=== PATIENT | female | born 1975 | race American Indian/Alaskan Native ===

== ENCOUNTER 2019-08-21 09:33 | Observation (INO) | payer BC, MEDICAID, MEDICARE ==
[2019-08-21] MEDS ORDERED: fentaNYL 100 MCG/2 ML INJ IV ONE (09:59)
[2019-08-21] MEDS ORDERED: propofoL 200 MG/20 ML VIAL IV ONE (10:00)
[2019-08-21] MEDS ORDERED: fentaNYL 100 MCG/2 ML INJ ONE (10:02)
--- NOTE | 2019-08-21 10:04 | Emergency Department Report ---
ED General Adult HPI - General Stated complaint: LT SHOULDER PAIN Time Seen by Provider: 08/21/19 09:58 - History of Present Illness Initial comments: 43-year-old female with no prior shoulder injury. Patient states that she fell on her steps. She states that the steps are to steep and she has fallen before. She does not report any prior shoulder injury. She states that she has recently had implants after prior surgery for breast cancer. She states that she was not found to have any residual carcinoma or spread. She states her last meal was last night. She has had no prior problems with anesthesia. -: Sudden Location: left, upper extremity (Shoulder only) Radiation: non-radiation Quality: aching Consistency: constant Improves with: none Worsens with: movement Associated Symptoms: denies other symptoms Treatments Prior to Arrival: none - Related Data Home Medications Medication Instructions Recorded Confirmed Last Taken Phentermine HCl 30 mg PO BID 01/31/14 02/14/14 02/07/14 Valacyclovir HCl [Valtrex] 500 mg PO DAILY 01/31/14 02/14/14 Unknown Allergies Allergy/AdvReac Type Severity Reaction Status Date / Time No Known Allergies Allergy Verified 01/13/14 13:17 ED Review of Systems ROS: Stated complaint: LT SHOULDER PAIN Other details as noted in HPI Constitutional: denies: chills, fever Eyes: denies: eye pain, eye discharge ENT: denies: ear pain, throat pain Respiratory: denies: shortness of breath, wheezing Cardiovascular: denies: chest pain, dyspnea on exertion Endocrine: no symptoms reported Gastrointestinal: denies: abdominal pain, vomiting Genitourinary: denies: urgency, dysuria Musculoskeletal: as per HPI, arthralgia (Currently). denies: back pain Skin: denies: rash, lesions Neurological: denies: weakness, numbness, paresthesias Psychiatric: denies: anxiety, depression Hematological/Lymphatic: denies: easy bleeding, easy bruising ED Past Medical Hx - Surgical History Hx Breast Surgery: Yes (BREAST AUGMENTATION) - Social History Smoking Status: Current Every Day Smoker - Medications Home Medications: Home Medications Medication Instructions Recorded Confirmed Last Taken Type Phentermine HCl 30 mg PO BID 01/31/14 02/14/14 02/07/14 History Valacyclovir HCl [Valtrex] 500 mg PO DAILY 01/31/14 02/14/14 Unknown History ED Physical Exam - General Limitations: Physical Limitation General appearance: alert, in distress - Head Head exam: Present: atraumatic, normocephalic - Eye Eye exam: Present: normal appearance. Absent: scleral icterus - ENT ENT exam: Present: mucous membranes moist - Neck Neck exam: Present: normal inspection. Absent: tenderness - Respiratory Respiratory exam: Present: normal lung sounds bilaterally. Absent: respiratory distress - Cardiovascular Cardiovascular Exam: Present: regular rate, normal rhythm - GI/Abdominal GI/Abdominal exam: Present: soft, normal bowel sounds. Absent: distended, tenderness - Extremities Exam Extremities exam: Present: other (Deformity of the left shoulder. Limited exam secondary to pain. Positive apprehension. Grossly neurovascular intact exam.) - Back Exam Back exam: Present: muscle spasm. Absent: paraspinal tenderness, vertebral tenderness - Neurological Exam Neurological exam: Present: alert, oriented X3, CN II-XII intact (As tested). Absent: motor sensory deficit (Limited exam. Appears intact) - Psychiatric Psychiatric exam: Present: agitated, anxious - Skin Skin exam: Present: warm, dry, intact ED Course Vital Signs 08/21/19 08/21/19 08/21/19 09:40 09:46 10:01 Pulse Rate 122 H 119 H 120 H Respiratory 20 13 22 Rate Blood Pressure Blood Pressure 149/69 [Right] O2 Sat by Pulse 98 100 93 Oximetry 08/21/19 08/21/19 08/21/19 10:15 10:31 10:45 Pulse Rate 131 H 132 H 115 H Respiratory 27 H 29 H 20 Rate Blood Pressure 149/69 149/69 149/69 Blood Pressure [Right] O2 Sat by Pulse 86 99 Oximetry 08/21/19 11:13 Pulse Rate Respiratory 14 Rate Blood Pressure Blood Pressure [Right] O2 Sat by Pulse Oximetry - Reevaluation(s) Reevaluation #1: Patient given fentanyl. Her portable x-rays revealed a spiral shaft fracture displaced of the proximal humerus. This cannot be reduced in the emergency department. Ortho paged. 08/21/19 10:24 Reevaluation #2: Spoke with Dr. Roblero. He has accepted the patient. He states he will operate in the a.m. Admit to hospitalist service. 08/21/19 11:25 ED Medical Decision Making - Lab Data Result diagrams: 08/21/19 10:46 08/21/19 10:46 Laboratory Results - last 24 hr 08/21/19 08/21/19 08/21/19 10:46 10:46 10:46 WBC 16.7 H RBC 4.52 Hgb 12.0 Hct 36.6 MCV 81 MCH 27 L MCHC 33 RDW 15.2 Plt Count 379 Lymph % (Auto) 4.6 L [place] % (Auto) 7.6 H Eos % (Auto) 0.1 Baso % (Auto) 0.4 Lymph # 0.8 L [place] # 1.3 H Eos # 0.0 Baso # 0.1 Seg Neutrophils % 87.3 H Seg Neutrophils # 14.6 H PT 14.9 INR 1.15 H APTT 23.7 L Sodium 137 Potassium 3.5 L Chloride 101.6 Carbon Dioxide 18 L Anion Gap 21 BUN 8 Creatinine 0.6 L Estimated GFR > 60 BUN/Creatinine Ratio 13 Glucose 97 Calcium 9.6 Total Bilirubin 0.70 AST 35 ALT 16 Alkaline Phosphatase 118 Total Protein 7.3 Albumin 4.2 Albumin/Globulin Ratio 1.4 Blood Type 08/21/19 10:48 WBC RBC Hgb Hct MCV MCH MCHC RDW Plt Count Lymph % (Auto) [place] % (Auto) Eos % (Auto) Baso % (Auto) Lymph # [place] # Eos # Baso # Seg Neutrophils % Seg Neutrophils # PT INR APTT Sodium Potassium Chloride Carbon Dioxide Anion Gap BUN Creatinine Estimated GFR BUN/Creatinine Ratio Glucose Calcium Total Bilirubin AST ALT Alkaline Phosphatase Total Protein Albumin Albumin/Globulin Ratio Blood Type A POSITIVE - EKG Data -: EKG Interpreted by Ut EKG shows normal: sinus rhythm, axis, intervals, QRS complexes, ST-T waves Rate: tachycardia - EKG Data Interpretation: no acute changes - Radiology Data Radiology results: image reviewed (Displaced spiral fracture of the humerus) Critical care attestation.: If time is entered above; I have spent that time in minutes in the direct care of this critically ill patient, excluding procedure time. ED Disposition Clinical Impression: History of breast cancer Proximal humerus fracture Qualifiers: Encounter type: initial encounter Fracture type: closed Fracture morphology: other fracture Fracture alignment: displaced Laterality: left Qualified Code(s): S42.292A - Other displaced fracture of upper end of left humerus, initial encounter for closed fracture Disposition: DC-09 OP ADMIT IP TO THIS HOSP Is pt being admited?: Yes Does the pt Need Aspirin: No Condition: Stable Time of Disposition: 11:28
--- NOTE | 2019-08-21 10:38 | XRay Report ---
HISTORY:Pain, dislocated COMPARISON: None. TECHNIQUE: AP lateral and obliques views were obtained FINDINGS: Bones: Oblique fracture of the proximal humerus is present. Joint spaces: Maintained. Soft tissues: No significant abnormality. Additional findings: None. IMPRESSION: 1. Fractured humerus as noted Signer Name: Lennox Mckeon MD Signed: 08/21/2019 10:34 AM Workstation Name: [id number]
[2019-08-21 11:00] LABS: Basophils # (Auto) 0.1 K/mm3 (0.0-0.1); Basophils % (Auto) 0.4 % (0.0-1.8); Eosinophils % (Auto) 0.1 % (0.0-4.3); Hematocrit 36.6 % (30.3-42.9); Lymphocytes # (Auto) 0.8 K/mm3 (1.2-5.4); Lymphocytes % (Auto) 4.6 % (13.4-35.0); Mean Corpuscular HGB Conc 33 % (30-34); Mean Corpuscular Volume 81 fl (79-97); Monocytes # (Auto) 1.3 K/mm3 (0.0-0.8); Monocytes % (Auto) 7.6 % (0.0-7.3); Platelet Count 379 K/mm3 (140-440); Red Blood Count 4.52 M/mm3 (3.65-5.03); Red Cell Distribution Width 15.2 % (13.2-15.2)
[2019-08-21] MEDS ORDERED: ONDANSETRON 4 MG/2 ML INJ IV ONE ×2 (11:05→11:06)
[2019-08-21] MEDS ORDERED: HYDROmorphone 1 MG/1 ML INJ IV ONE ×3 (11:05→13:10)
[2019-08-21] MEDS ORDERED: diphenhydrAMINE 50 MG/ML VIAL IV ONE ×2 (11:05→11:07)
[2019-08-21] MEDS ORDERED: diphenhydrAMINE 50 MG/ML VIAL ONE (11:08)
[2019-08-21] MEDS ORDERED: HYDROmorphone 1 MG/1 ML INJ ONE ×2 (11:08→13:09)
[2019-08-21] MEDS ORDERED: ONDANSETRON 4 MG/2 ML INJ ONE (11:08)
[2019-08-21 11:11] LABS: INR 1.15 (0.87-1.13)
[2019-08-21 11:12] LABS: Partial Thromboplastin Time 23.7 Sec. (24.2-36.6)
[2019-08-21 11:25] LABS: Alanine Aminotransferase 16 units/L (7-56); Albumin 4.2 g/dL (3.9-5); BUN/Creatinine Ratio 13; Blood Urea Nitrogen 8 mg/dL (7-17); Calcium 9.6 mg/dL (8.4-10.2); Hemolysis Index 35
[2019-08-21 11:36] LABS: Bilirubin,Direct < 0.2 mg/dL (0-0.2)
--- NOTE | 2019-08-21 12:34 | History and Physical Report ---
History of Present Illness Chief complaint: I tripped and then fell and hurt my arm History of present illness: 43-year-old female with nicotine dependence, breast cancer, depression, medication noncompliance presents to ED for evaluation. Patient states that she tripped and subsequently fell on her steps and landed on her left arm this morning. Patient states that she suddenly felt severe pain in her left arm aft er the fall. EMS was notified and upon arrival the patient was found to be in distress with bruising and pain to the left upper extremity. Patient subsequently transported to [facility] for further care and evaluation. Patient seen and evaluated in the emergency department. Lab and imaging studies reviewed and the results discussed with the patient. Patient found to have left humerus fracture. Orthopedic surgery service consulted in ED. Patient admitted to surgical floor for medical stabilization and preoperative optimization. No prior admission for review. All medication listed at time of admission has been reconciled. Past History Past Medical History: cancer, other (See HPI) Past Surgical History: Other (Breast surgery) Social history: single, smoking Family history: hypertension Medications and Allergies Allergies Allergy/AdvReac Type Severity Reaction Status Date / Time No Known Allergies Allergy Verified 01/13/14 13:17 Home Medications Medication Instructions Recorded Confirmed Last Taken Type Phentermine HCl 30 mg PO BID 01/31/14 02/14/14 02/07/14 History Valacyclovir HCl [Valtrex] 500 mg PO DAILY 01/31/14 02/14/14 Unknown History Review of Systems Constitutional: no weight loss, no weight gain, no fever, no chills Ears, nose, mouth and throat: no ear pain, no ear discharge, no tinnitis, no nose pain, no nasal congestion Breasts: no change in shape, no mass Cardiovascular: no chest pain, no orthopnea, no palpitations, no rapid/irregular heart beat, no edema, no syncope, no lightheadedness, no shortness of breath Respiratory: no cough, no cough with sputum, no excessive sputum, no shortness of breath, no dyspnea on exertion Gastrointestinal: no abdominal pain, no nausea, no vomiting, no diarrhea Genitourinary Female: no pelvic pain, no flank pain, no menorrhagia, no dysuria Rectal: no pain, no incontinence, no bleeding Musculoskeletal: other (Left arm pain), no neck stiffness, no neck pain, no arm numbness/tingling, no low back pain, no shooting leg pain, no leg numbness/tingling Integumentary: no rash, no pruritis, no redness, no sores, no wounds Neurological: no transient paralysis, no paralysis, no weakness, no parathesias, no numbness, no tingling, no seizures, no syncope, no tremors Psychiatric: anxiety, depression, no memory loss, no change in sleep habits, no insomnia, no change in appetite Endocrine: no cold intolerance, no heat intolerance, no polyphagia, no excessive thirst, no polydipsia, no polyuria, no excessive sweating Hematologic/Lymphatic: no easy bruising, no easy bleeding, no lymphadenopathy Allergic/Immunologic: no urticaria, no allergic rhinitis, no wheezing, no persistent infections Exam - Constitutional Vitals: Temp Pulse Resp BP Pulse Ox 115 H 14 149/69 99 08/21/19 10:45 08/21/19 11:13 08/21/19 10:45 08/21/19 10:45 General appearance: Present: mild distress - EENT Eyes: Present: PERRL ENT: hearing intact, clear oral mucosa - Neck Neck: Present: supple, normal ROM - Respiratory Respiratory effort: normal Respiratory: bilateral: CTA - Cardiovascular Heart Sounds: Present: S1 & S2. Absent: rub, click - Extremities Extremities: pulses symmetrical, No edema Peripheral Pulses: within normal limits - Abdominal General gastrointestinal: Present: soft, non-tender, non-distended, normal bowel sounds Female genitourinary: Present: normal - Integumentary Integumentary: Present: clear, warm, dry - Musculoskeletal Musculoskeletal: gait normal, strength equal bilaterally - Psychiatric Psychiatric: appropriate mood/affect, intact judgment & insight - Neurologic Neurologic: CNII-XII intact, moves all extremities Results - Labs CBC & Chem 7: 08/21/19 10:46 08/21/19 10:46 Labs: Abnormal lab results 08/21/19 08/21/19 08/21/19 Range/Units 10:46 10:46 10:46 WBC 16.7 H (4.5-11.0) K/mm3 MCH 27 L (28-32) pg Lymph % (Auto) 4.6 L (13.4-35.0) % [place] % (Auto) 7.6 H (0.0-7.3) % Lymph # 0.8 L (1.2-5.4) K/mm3 [place] # 1.3 H (0.0-0.8) K/mm3 Seg Neutrophils % 87.3 H (40.0-70.0) % Seg Neutrophils # 14.6 H (1.8-7.7) K/mm3 INR 1.15 H (0.87-1.13) APTT 23.7 L (24.2-36.6) Sec. Potassium 3.5 L (3.6-5.0) mmol/L Carbon Dioxide 18 L (22-30) mmol/L Creatinine 0.6 L (0.7-1.2) mg/dL Assessment and Plan - Patient Problems (1) Left humeral fracture Current Visit: Yes Status: Acute Plan to address problem: X-ray left arm, orthopedic surgery service consulted, pending surgical intervention in a.m., Pain control (2) Systemic inflammatory response syndrome Current Visit: Yes Status: Acute Plan to address problem: CBC, CMP, urinalysis, chest x-ray, empiric IV antibiotic therapy x1 dose, repeat CBC in a.m. (3) History of breast cancer Current Visit: Yes Status: Acute Plan to address problem: Supportive care, outpatient oncology follow-up. (4) Nicotine dependence Current Visit: Yes Status: Acute Qualifiers: Nicotine product type: cigarettes Substance use status: in withdrawal Qualified Code(s): F17.213 - Nicotine dependence, cigarettes, with withdrawal Plan to address problem: Supportive care, behavior change counseling, +15 minutes (5) Depression Current Visit: Yes Status: Acute Plan to address problem: Mental health consulted, patient acknowledges noncompliance with outpatient antidepressant medication. (6) Agitation Current Visit: Yes Status: Acute Plan to address problem: Ativan every 6 hours as needed, supportive care. (7) Noncompliance Current Visit: Yes Status: Acute Plan to address problem: Patient noncompliant with psychiatric medication. Patient states that she only takes the medication when she feels as though she needs it. Patient counseled regarding noncompliance with medication. Patient informed that noncompliance with outpatient medication may result in worsening symptoms, worsening dysfunct ion, and even . Patient knowledges understanding instructions. Patient acknowledges understanding risks of noncompliance. (8) DVT prophylaxis Current Visit: Yes Status: Acute Plan to address problem: SCD to bilateral lower extremities while in bed, patient is ambulatory.
[2019-08-21] MEDS ORDERED: ACETAMINOPHEN 325 MG TAB PO PRN (12:35)
[2019-08-21] MEDS ORDERED: ONDANSETRON 4 MG/2 ML INJ IV PRN (12:35)
[2019-08-21] MEDS ORDERED: MORPHINE 2 MG/1 ML INJ IV PRN (12:35)
[2019-08-21] MEDS ORDERED: SODIUM BICARB 8.4% 50 MEQ/50 ML SYRINGE IV ONE ×2 (12:38→13:48)
[2019-08-21] MEDS ORDERED: LORazepam 2 MG/ML VIAL IV ONE (13:10)
[2019-08-21] MEDS ORDERED: LORazepam 2 MG/ML VIAL ONE (13:14)
[2019-08-21] MEDS ORDERED: oxyCODONE /ACETAMINOPHEN 5-325MG TAB ONE (13:14)
[2019-08-21] MEDS: oxyCODONE /ACETAMINOPHEN 5-325MG TAB PO PRN ×2 (13:17→20:24)
[2019-08-21] MEDS ORDERED: LORazepam 2 MG/ML VIAL IV PRN (13:35)
[2019-08-21] MEDS ORDERED: MORPHINE 2 MG/1 ML INJ ONE (14:28)
--- NOTE | 2019-08-21 14:52 | XRay Report ---
CHEST 1 VIEW 1425 INDICATION / CLINICAL INFORMATION: cough. COMPARISON: 1003 FINDINGS: SUPPORT DEVICES: None HEART / MEDIASTINUM: No significant abnormality. LUNGS / PLEURA: Mild bibasilar atelectatic changes are noted. No definite areas of consolidation are seen. No pneumothorax. ADDITIONAL FINDINGS: No significant additional findings. IMPRESSION: Mild atelectasis Signer Name: Stefan Sarmiento MD Signed: 08/21/2019 2:47 PM Workstation Name: [id number]
--- NOTE | 2019-08-21 21:23 | Anesthesia Consultation ---
Anesthesia Consult and Med Hx Date of service: 08/21/19 - Airway Anesthetic Teeth Evaluation: Poor, Partials ROM Head & Neck: Adequate Mental/Hyoid Distance: Adequate Mallampati Class: Class II Intubation Access Assessment: Probably Good - Pulmonary Exam CTA: Yes - Cardiac Exam Cardiac Exam: RRR - Pre-Operative Health Status ASA Pre-Surgery Classification: ASA2 Proposed Anesthetic Plan: General - Pulmonary Hx Smoking: Yes Hx Respiratory Symptoms: No (hx PNA in 04/2019; resolved) - Cardiovascular System Hx Hypertension: No Hx Heart Attack/AMI: No Hx Percutaneous Transluminal Coronary Angioplasty (PTCA): No Hx Cardia Arrhythmia: No - Central Nervous System CVA: No Hx Psychiatric Problems: Yes (bipolar d/o, anxiety, depression) - Gastrointestinal Hx Gastroesophageal Reflux Disease: No - Endocrine Hx Renal Disease: No Hx Liver Disease: No Hx Insulin Dependent Diabetes: No Hx Non-Insulin Dependent Diabetes: No Hx Thyroid Disease: No - Hematic Hx Anemia: No - Other Systems Hx Cancer: Yes (hx breast ca) - Additional Comments Anesthesia Medical History Comments: PMH breast ca, smoking, psychiatric illness s/p mechanical fall down stairs w/ left humerus fracture scheduled for IMN. No hx anesthetic complications.
[2019-08-21 21:38] VITALS: BP 139/107
[2019-08-22] MEDS ORDERED: valACYclovir 500 MG TAB PO SCH (10:00)
== END 2019-08-21 23:08 | disposition left against medical advice (07) ==
LOC: ED 09:33 → 3B-SURG 12:35
PROVIDERS: ADMIT Internal Medicine; ATTEND Internal Medicine
DX: S42.292A Other displaced fracture of upper end of left humerus, initial encounter for closed fracture (principal); R65.10 Systemic inflammatory response syndrome (SIRS) of non-infectious origin without acute organ dysfunction; F32.9 Major depressive disorder, single episode, unspecified; F17.213 Nicotine dependence, cigarettes, with withdrawal; Z85.3 Personal history of malignant neoplasm of breast; Z91.19 Patient's noncompliance with other medical treatment and regimen; Z79.899 Other long term (current) drug therapy; W01.0XXA Fall on same level from slipping, tripping and stumbling without subsequent striking against object, initial encounter; Y93.89 Activity, other specified; Y92.89 Other specified places as the place of occurrence of the external cause
CPT/HCPCS: 36415; 71045; 73030; 80048; 80076; 85025; 85610; 85730; 86850; 86900; 86901; 96365; 96375; 96376; 99284; G0378; J1170; J1200; J1956; J2060; J2270; J2405; J2704; J3010